=== PATIENT | male | born 1960 ===

== ENCOUNTER 2021-04-06 20:22 | Emergency (ER) | payer BC ==
--- NOTE | 2021-04-06 21:17 | EDM.PDOC ---
ED HPI GENERAL MEDICAL PROBLEM - General Chief Complaint: Laceration Stated Complaint: FISH HOOK Time Seen by Provider: 04/06/21 20:40 - History of Present Illness INITIAL COMMENTS - FREE TEXT/NARRATIVE: Patient comes in with a fishhook embedded into the left index finger. he states it happened while he was trying to release a large fish that he caught. In looking at the patient's finger I do not see any exposed hook. The patient states that they cut the hook off just above the skin and it disappeared inside of the patient's skin on his finger. Patient thinks has been close to 10 years since he had a tetanus shot. He states he is otherwise healthy and is not on any prescription medications. ED ROS GENERAL - Review of Systems Review Of Systems: Comprehensive ROS is negative, except as noted in HPI. Skin: Reports: Other (Foreign body to left index finger.) ED EXAM, SKIN/RASH Exam: See Below Text/Narrative:: Examining the patient's left index finger reveals a small opening in the skin on the medial middle phalanx medial side or thumb side of the finger there is no active bleeding at this time with mild pressure applied I do not feel any obvious foreign body in line with the opening in the skin. Patient has full flexion extension capability of the finger. And good color to the tip of the finger. ED SKIN PROCEDURES - Foreign Body Removal Indication:: Treatment plan the skin was swabbed with Betadine over the index finger, after which I injected 1% lidocaine without epi locally for anesthesia. Then a sterile field was set up and using a #11 blade I was able to open the skin going medially from the opening it appears that the foreign body had shifted in a little lateral direction, but I was able to find it fairly soon. Using a small mosquito forceps I was able to grasp and remove the small hook on my third attempt. There was a few drops of blood present after removing the finger cot. Nursing staff then cleansed the finger and applied antibiotic ointment and a dressing. Patient is to monitor for infection, and he is not sure if he wants a tetanus shot or not. Advised him that he has 72 hours at which point he will be back home in the [place] area he can call his local clinic on Friday and get a tetanus shot there if he would like. If the area becomes infected at all he is to come back in for further treatment including oral antibiotics. Departure - Departure Time of Disposition: 21:10 Disposition: Home, Self-Care 01 Condition: Good Clinical Impression: Fish hook injury of finger of left hand Qualifiers: Encounter type: initial encounter Qualified Code(s): S69.92XA - Unspecified injury of left wrist, hand and finger(s), initial encounter - Discharge Information *PRESCRIPTION DRUG MONITORING PROGRAM REVIEWED*: Not Applicable *COPY OF PRESCRIPTION DRUG MONITORING REPORT IN PATIENT AILYN: Not Applicable
[2021-04-06] MEDS: Diphtheria,Pertussis(Acell),Tetanus Vaccine 0.5 ML SDV IM ONE (21:20)
== END 2021-04-07 03:04 | disposition home or self-care (01) ==
LOC: LB.ED 20:22
DX: S60.451A Superficial foreign body of left index finger, initial encounter (principal); Z23 Encounter for immunization; W45.8XXA Other foreign body or object entering through skin, initial encounter
CPT/HCPCS: 10120; 90471; 90715; 99283-25